=== PATIENT | female | born 1990 | race African-American/Black ===

== ENCOUNTER 2021-04-12 20:22 | Emergency (ER) | payer MEDICAID ==
[~2021-04-12] VITALS: Ht 152.4 cm; Wt 86.0 kg
[2021-04-12 21:36] VITALS: BP 113/66
[2021-04-12] MEDS ORDERED: ACETAMINOPHEN 325MG TABLET PO ONE (22:30)
[2021-04-12] MEDS ORDERED: BO1 TP (22:30)
[2021-04-12] MEDS ORDERED: IBUPROFEN 400MG TABLET PO ONE (22:30)
[2021-04-12] MEDS ORDERED: CEPH500T MT (22:30)
== END 2021-04-12 23:21 | disposition home or self-care (01) ==
LOC: ER 20:22
DX: N76.2 Acute vulvitis (principal); L73.8 Other specified follicular disorders; Z91.018 Allergy to other foods
CPT/HCPCS: 99282

== ENCOUNTER 2022-04-25 20:37 | Emergency (ER) | payer MEDICAID, OTHER ==
[~2022-04-25] VITALS: Ht 152.4 cm; Wt 73.6 kg
[~2022-04-25 20:37] MED LIST: BO1 TP; CEPH500T MT
[2022-04-25 21:03] VITALS: BP 118/53
[2022-04-25] MEDS ORDERED: KETOROLAC 60MG/2ML VIAL IM STA (23:43)
[2022-04-25 23:54] LABS: CLARITY URINE CLEAR (CLEAR); COLOR URINE YELLOW (YELLOW); KETONES URINE TRACE (NEGATIVE); LEUKOCYTE ESTERASE URINE NEGATIVE (NEGATIVE); NITRITE URINE NEGATIVE (NEGATIVE); OCCULT BLOOD URINE NEGATIVE (NEGATIVE); PROTEIN URINE TRACE (NEGATIVE); SPECIFIC GRAVITY URINE 1.025 (1.005-1.030)
[2022-04-26 01:23] LABS: BASOPHILS % 0.5 % (0.0-2.0); EOSINOPHILS % 0.5 % (0.0-5.0); HEMATOCRIT. 27.4 % (36.0-48.0); HEMOGLOBIN. 8.9 g/dL (12.0-16.0); LYMPHOCYTES % 32.1 % (20.0-50.0); MEAN CORPUSCULAR VOLUME 82.8 fL (81.0-99.0); MEAN PLATELET VOLUME 8.4 fl (7.4-10.4); MONOCYTES % 12.9 % (2.0-8.0); PLATELET 225 x1000/uL (130-400); RED BLOOD CELL COUNT 3.31 mill/uL (4.2-5.4); RED CELL DISTRIBUTION WIDTH 20.1 % (11.6-14.6)
[2022-04-26 01:26] LABS: CHLORIDE 101 mEq/L (98-107)
[2022-04-26] MEDS ORDERED: CYCL5TAB PO (02:04)
[2022-04-26] MEDS ORDERED: NAPR-681 PO (02:04)
[2022-04-26] MEDS ORDERED: FERR324T4 PO (02:09)
== END 2022-04-26 02:13 | disposition home or self-care (01) ==
LOC: ER 20:37
DX: R07.81 Pleurodynia (principal); R10.11 Right upper quadrant pain; D64.9 Anemia, unspecified; Z20.822 Contact with and (suspected) exposure to COVID-19
CPT/HCPCS: 36415; 71045; 76705; 80053; 81003; 81025; 83690; 85025; 87426; 96372; 99285; C9803; J1885

== ENCOUNTER 2022-05-21 19:30 | Emergency (ER) | payer MEDICAID ==
[~2022-05-21] VITALS: Ht 152.4 cm; Wt 77.0 kg
[~2022-05-21 19:30] MED LIST changes: +CYCL5TAB PO; +FERR324T4 PO; +NAPR-681 PO
[2022-05-21] MEDS ORDERED: BALANCED SALT IRRIG SOLN 15ML IR ONE (22:30)
[2022-05-21] MEDS ORDERED: TETRACAINE 0.5% OPHTH DROPS 4ML LEFTEYE ONE (23:00)
[2022-05-21] MEDS ORDERED: FLUORESCEIN SODIUM 1MG/STRIP LEFTEYE ONE (23:00)
[2022-05-21] MEDS ORDERED: CETIRIZINE 10MG TABLET PO SCH (23:30)
[2022-05-22 00:31] LABS: CLARITY URINE CLOUDY (CLEAR); COLOR URINE YELLOW (YELLOW); KETONES URINE 1+ (NEGATIVE); LEUKOCYTE ESTERASE URINE 2+ (NEGATIVE); NITRITE URINE NEGATIVE (NEGATIVE); OCCULT BLOOD URINE NEGATIVE (NEGATIVE); PH URINE 6.5 (4.5-8.0); PROTEIN URINE 1+ (NEGATIVE); SPECIFIC GRAVITY URINE 1.026 (1.005-1.030)
[2022-05-22] MEDS ORDERED: CEPH500C2 MT (00:38)
[2022-05-22] MEDS ORDERED: B50 MT (00:38)
[2022-05-22 00:50] VITALS: BP 110/54
== END 2022-05-22 00:55 | disposition home or self-care (01) ==
LOC: ER 19:30
DX: H10.12 Acute atopic conjunctivitis, left eye (principal); Z91.018 Allergy to other foods
CPT/HCPCS: 81003; 99283

== ENCOUNTER 2022-06-15 19:57 | Emergency (ER) | payer OTHER ==
[~2022-06-15] VITALS: Ht 152.4 cm; Wt 73.0 kg
[~2022-06-15 19:57] MED LIST changes: +B50 MT; +CEPH500C2 MT
[2022-06-15 20:26] VITALS: BP 138/79
[2022-06-15] MEDS ORDERED: LORATADINE 10MG TABLET PO SCH (23:00)
[2022-06-15] MEDS ORDERED: PREDNISONE 20MG TABLET PO ONE (23:00)
[2022-06-16] MEDS ORDERED: LORA10CA MT (00:20)
[2022-06-16] MEDS ORDERED: P20 MT (00:20)
== END 2022-06-16 00:43 | disposition home or self-care (01) ==
LOC: ER 20:08
DX: H01.004 Unspecified blepharitis left upper eyelid (principal); H01.001 Unspecified blepharitis right upper eyelid; Z79.899 Other long term (current) drug therapy
CPT/HCPCS: 99283; J7512

== ENCOUNTER 2022-06-25 04:39 | Emergency (ER) | payer OTHER ==
[~2022-06-25] VITALS: Ht 152.4 cm; Wt 75.6 kg
[~2022-06-25 04:39] MED LIST changes: +LORA10CA MT; +P20 MT
[2022-06-25] MEDS ORDERED: DIPHENHYDRAMINE 50MG/ML VIAL IV ONE (05:45)
[2022-06-25] MEDS ORDERED: METHYLPREDNISOLONE SOD SUCC 125 MG/2 ML VIAL IV ONE (05:45)
[2022-06-25] MEDS ORDERED: FAMOTIDINE 20MG/2ML VIAL IV ONE (05:45)
[2022-06-25] MEDS ORDERED: DIPHENHYDRAMINE 50MG/ML VIAL IV NR (08:00)
[2022-06-25] MEDS ORDERED: METHYLPREDNISOLONE SOD SUCC 125 MG/2 ML VIAL IV NR (08:00)
[2022-06-25] MEDS ORDERED: FAMOTIDINE 20MG/2ML VIAL IV NR (08:00)
[2022-06-25 09:30] VITALS: BP 101/50
== END 2022-06-25 09:32 | disposition home or self-care (01) ==
LOC: ER 04:39
DX: T78.49XA Other allergy, initial encounter (principal); Z91.018 Allergy to other foods; X58.XXXA Exposure to other specified factors, initial encounter
CPT/HCPCS: 81025; 96374; 96375; 99284; J1200; J2930; J3490; Z7610

== ENCOUNTER 2022-07-16 05:03 | Emergency (ER) | payer OTHER ==
[~2022-07-16] VITALS: Ht 152.4 cm; Wt 71.0 kg
[2022-07-16 05:20] VITALS: BP 112/68
[2022-07-16] MEDS ORDERED: FAMOTIDINE 20MG/2ML VIAL IV ONE (07:15)
[2022-07-16] MEDS ORDERED: DIPHENHYDRAMINE 50MG/ML VIAL IV ONE (07:15)
[2022-07-16] MEDS ORDERED: METHYLPREDNISOLONE SOD SUCC 125 MG/2 ML VIAL IV ONE (07:15)
[2022-07-16 08:03] LABS: BASOPHILS % 0.8 % (0.0-2.0); EOSINOPHILS % 0.2 % (0.0-5.0); HEMATOCRIT. 35.3 % (36.0-48.0); HEMOGLOBIN. 11.6 g/dL (12.0-16.0); MEAN CORPUSCULAR HEMOGLOBIN 25.5 pg (28.0-32.0); MEAN CORPUSCULAR VOLUME 77.7 fL (81.0-99.0); MEAN PLATELET VOLUME 8.2 fl (7.4-10.4); MONOCYTES % 7.8 % (2.0-8.0); NEUTROPHILS % 65.2 % (40.0-76.0); PLATELET 416 x1000/uL (130-400); RED BLOOD CELL COUNT 4.54 mill/uL (4.2-5.4); RED CELL DISTRIBUTION WIDTH 22.2 % (11.6-14.6)
[2022-07-16 08:07] LABS: CLARITY URINE CLOUDY (CLEAR); COLOR URINE DARK YELLOW (YELLOW); KETONES URINE 1+ (NEGATIVE); LEUKOCYTE ESTERASE URINE TRACE (NEGATIVE); NITRITE URINE NEGATIVE (NEGATIVE); OCCULT BLOOD URINE NEGATIVE (NEGATIVE); PROTEIN URINE TRACE (NEGATIVE); SPECIFIC GRAVITY URINE 1.023 (1.005-1.030)
[2022-07-16 08:26] LABS: CHLORIDE 102 mEq/L (98-107)
[2022-07-16 11:42] LABS: PLATELET ESTIMATE NORMAL
== END 2022-07-16 10:01 | disposition home or self-care (01) ==
LOC: ER 05:03
DX: R22.0 Localized swelling, mass and lump, head (principal); H57.13 Ocular pain, bilateral; Z91.018 Allergy to other foods
CPT/HCPCS: 36415; 80053; 81003; 81025; 85025; 85651; 86038; 96374; 96375; 99284; J1200; J2930; J3490